=== PATIENT | male | born 1950 | race Caucasian/White ===

== ENCOUNTER 2020-11-03 19:27 | Emergency (ER) | payer MEDICARE, OTHER ==
[2020-11-03] MEDS ORDERED: cefTRIAXone 1 GM VIAL IM STA (19:56)
[2020-11-03] MEDS ORDERED: LIDOCAINE 1% 2 ML VIAL MC ONE (19:56)
--- NOTE | 2020-11-03 19:58 | ED Physician Documentation ---
History of Present Illness - Stated complaint Stated Complaint: TOOTH PX/NECK SWELLING - Chief complaint Chief Complaint: Heent - History obtained from History obtained from: Patient - History of Present Illness Timing: How many days ago (several) Pain level max: 5 Pain level now: 3 - Additonal information Additional information: 70-year-old male presents to the emergency department with left lower tooth pain ongoing for the past several weeks. Worsening over the past few days. Spoke with his dentist who wanted to put him on antibiotics but as the pharmacies are closed tonight was directed here for antibiotic therapy. No fevers. No chills. No swelling. Nothing makes it better or worse. Has an appointment on Thursday for tooth extraction Review of Systems Constitutional: denies: Fever, Chills GI: denies: Vomiting, Diarrhea Skin: denies: Rash Musculoskeletal: denies: Neck pain, Back pain Neurologic: denies: Headache PD PAST MEDICAL HISTORY - Past Medical History Past Medical History: Yes Cardiovascular: Hypertension Endocrine/Autoimmune: HyPOthyroidism - Past Surgical History Past Surgical History: Yes - Present Medications Home Medications: Ambulatory Orders Medication Instructions Recorded Confirmed Amoxicillin 500 mg PO TID #30 11/03/20 Hypertension Mes 11/03/20 Natural Thyroid 11/03/20 - Allergies Allergies/Adverse Reactions: Allergies Allergy/AdvReac Type Severity Reaction Status Date / Time latex AdvReac Unknown Verified 11/03/20 19:35 oxycodone AdvReac Unknown Verified 11/03/20 19:35 - Social History Does the pt smoke?: No Smoking Status: Never smoker Does the pt drink ETOH?: Yes ETOH Use: Wine Does the pt have substance abuse?: No - Immunizations Immunizations are current?: Yes - POLST Patient has POLST: No PD ED PE NORMAL - Vitals Vital signs reviewed: Yes - General General: Alert and oriented X 3, No acute distress - HEENT HEENT: Moist mucous membranes, Other (poor dentition throughout. Multiple caries and receding gumline. No drainable abscess. no facial swelling. no ludwigs angina. no neck swelling) - Neck Neck: Supple, no meningeal sign, No adenopathy, Other (normal phonation, no trismus.) - Derm Derm: Warm and dry - Neuro Neuro: Alert and oriented X 3 - Psych Psych: Normal mood Results - Vitals Vitals: Vital Signs - 24 hr 11/03/20 19:31 Temperature 36.4 C L Heart Rate 95 Respiratory 16 Rate Blood Pressure 185/115 H O2 Saturation 98 Oxygen O2 Source Room air PD MEDICAL DECISION MAKING - ED course Complexity details: reviewed results, re-evaluated patient, considered differential, d/w patient ED course: Patient with dental caries and dental pain. Given Rocephin here. Will place on amoxicillin for home. We will have him follow-up with his dentist. No drainable abscess. No Loc's angina. Normal phonation. No trismus. Patient counseled regarding signs and symptoms for which I believe and urgent re-david luation would be necessary. Patient with good understanding of and agreement to plan and is comfortable going home at this time This document was made in part using voice recognition software. While efforts are made to proofread this document, sound alike and grammatical errors may occur. Departure - Departure Disposition: 01 Home, Self Care Clinical Impression: Pain due to dental caries Condition: Good Instructions: ED Tooth Pain Follow-Up: your,dentist this week [Other] Prescriptions: Amoxicillin 500 mg PO TID #30 Comments: Take all antibiotics until gone. Follow-up with your doctor for further care. Return if you worsen.
[2020-11-03 20:32] VITALS: BP 144/90
== END 2020-11-03 20:30 | disposition home or self-care (01) ==
LOC: ED 19:27
DX: K02.9 Dental caries, unspecified (principal); I10 Essential (primary) hypertension
CPT/HCPCS: 96372; 99283; 99284

== ENCOUNTER 2023-06-29 15:47 | Outpatient (CLI) | payer MEDICARE ==
--- NOTE | 2023-06-30 08:24 | XRAY Report ---
PROCEDURE: Knee 3 View RT INDICATIONS: PAIN IN RIGHT KNEE TECHNIQUE: 3 views of the right knee(s) were acquired. COMPARISON: None. FINDINGS: Bones: No fractures or dislocations. No suspicious bony lesions. Mild joint space narrowing in the medial femorotibial compartment with weightbearing. Mild tricompartmental knee joint degeneration. Soft tissues: Small knee joint effusion. No suspicious soft tissue calcifications or masses. IMPRESSION: 1. Mild degenerative joint disease. 2. Small knee joint effusion. If there is clinical suspicion for internal derangement, consider MRI f or further evaluation. Reviewed by: Fabby Mitchell MD on 06/30/2023 8:23 AM PDT Approved by: Fabby Mitchell MD on 06/30/2023 8:23 AM PDT Station ID: [id number]
== END 2023-06-29 15:48 | disposition home or self-care (01) ==
LOC: DI 15:47
PROVIDERS: ATTEND Nurse Practitioner
DX: M17.11 Unilateral primary osteoarthritis, right knee (principal); M25.461 Effusion, right knee

== ENCOUNTER 2023-10-23 13:17 | Outpatient (CLI) | payer OTHER | END 2023-10-23 13:18 | disposition home or self-care (01) | LOC: RT 13:17 | PROVIDERS: ATTEND Internal Medicine | DX: R09.89 Other specified symptoms and signs involving the circulatory and respiratory systems (principal); Z77.29 Contact with and (suspected) exposure to other hazardous substances | CPT/HCPCS: 94010; 94727; 94729 ==

== ENCOUNTER 2023-11-26 16:12 | Outpatient (CLI) | payer OTHER ==
--- NOTE | 2023-11-27 11:01 | CT Report ---
PROCEDURE: Chest WO INDICATIONS: ABN FINDING IN LUNG FIELD TECHNIQUE: A CT scan of the chest was performed. Intravenous contrast media was not administered. Images were re corded and evaluated at appropriate window settings. Reformats: axial MIP of the chest, coronal and s agittal. For radiation dose reduction, the following was used: automated exposure control, adjustment of mA and/or kV according to patient size. COMPARISON: None available at the time of dictation. FINDINGS: Image quality: Diagnostic. Chest wall and lower neck: No thyroid nodule which requires sonographic follow up. No axillary or sup raclavicular adenopathy by size. Lungs and pleura: No pneumothorax or pleural effusion. Basilar and peripheral predominant, juxtapleur al honeycombing and fibrotic changes are noted. No suspicious pulmonary nodule can be identified. No definite endobronchial lesion seen. Mediastinum: Heart size is normal. No pericardial effusion. No large vessel abnormality. There are sh otty mediastinal lymph nodes that are not enlarged by CT criteria. Esophagus appears dilated througho ut its course with air-fluid levels correlated reflux. Bones: No aggressive osseous abnormality. Upper Abdomen: Unremarkable. IMPRESSION: 1. Diffuse pulmonary fibrotic changes especially in the bases and peripherally showing honeycombing; showing a usual interstitial pneumonia (UIP)pattern. Nonspecific interstitial pneumonia (NSIP) less l ikely. Recommend pulmonology consult. 2. Dilated, thickened esophagus throughout its course with air-fluid levels. Patient is at risk of as piration. Consider connective tissue diseases. Reviewed by: Sridhar Ann MD on 11/27/2023 11:00 AM PDT Approved by: Sridhar Ann MD on 11/27/2023 11:00 AM PDT Station ID: [id number]
== END 2023-11-26 16:13 | disposition home or self-care (01) ==
LOC: DI 16:12
PROVIDERS: ATTEND Internal Medicine
DX: J84.10 Pulmonary fibrosis, unspecified (principal); K22.89 Other specified disease of esophagus

== ENCOUNTER 2024-01-25 14:05 | Outpatient (CLI) | payer OTHER ==
--- NOTE | 2024-01-25 16:29 | XRAY Report ---
PROCEDURE: Knee 4+V RT INDICATIONS: RIGHT KNEE PAIN TECHNIQUE: 4 views of the knee(s) were acquired. COMPARISON: None. FINDINGS: Bones: No fractures or dislocations. No suspicious bony lesions. Small bone island of the medial femoral condyle. Tricompartmental joint space narrowing with associated osteophytosis. Subchondral cy stic change of the medial tibiofemoral compartment. Soft tissues: Small knee joint effusion. No suspicious soft tissue calcifications or masses. IMPRESSION: Moderate to severe tricompartmental osteoarthritis. Kellgren-Jordan scale of osteoarthritis: 2-3. Reviewed by: Santos Sharma MD on 01/25/2024 4:28 PM PDT Approved by: Santos Sharma MD on 01/25/2024 4:28 PM PDT Station ID: [id number]
== END 2024-01-25 14:06 | disposition home or self-care (01) ==
LOC: DI 14:05
PROVIDERS: ATTEND Orthopaedic Surgery
DX: M17.11 Unilateral primary osteoarthritis, right knee (principal)